=== PATIENT | female | born 2000 | race Caucasian/White ===

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

== ENCOUNTER 2019-08-14 00:57 | Emergency (ER) | payer BC, OTHER ==
[2019-08-14] MEDS ORDERED: HALOPERIDOL LACTATE INJ 5 MG/1 ML VIAL IM ONE (01:04)
[2019-08-14] MEDS ORDERED: LORAZEPAM INJ 2 MG/1 ML VIAL IM ONE (01:05)
[2019-08-14] MEDS ORDERED: NORMAL SALINE 1000 ML 1,000 ML with POTASSIUM CHLORIDE 20 MEQ, MAGNESIUM SULFATE 8 MEQ,... IV PRN ×5 (01:07)
[2019-08-14 03:08] LABS: ABSOLUTE EOSINOPHILS # (AUTO) 0.1 10^3/uL (0.0-0.6); ABSOLUTE MONOCYTES (AUTO) 0.4 10^3/uL (0.1-1.4); ABSOLUTE NEUT (AUTO) 4.2 10^3/uL (1.7-8.2); BASOPHILS % (AUTO) 0.7 % (0-2); EOSINOPHILS % (AUTO) 0.8 % (0-6); HEMATOCRIT 45.2 % (36.0-47.0); HEMOGLOBIN 15.6 g/dL (12.0-15.5); LYMPHOCYTES % (AUTO) 29.6 % (13-45); MEAN CORPUSCULAR HEMOGLOBIN 30.9 pg (27.0-33.4); MEAN CORPUSCULAR HGB CONC 34.6 g/dL (32.0-36.0); MEAN CORPUSCULAR VOLUME 89 fl (80-97); MONOCYTES % (AUTO) 5.9 % (3-13); PLATELET COUNT 259 10^3/uL (150-450); RED BLOOD COUNT 5.06 10^6/uL (3.72-5.28); RED CELL DISTRIBUTION WIDTH 12.8 % (11.5-14.0); TOTAL CELLS COUNTED % (AUTO) 100 %; WHITE BLOOD COUNT 6.7 10^3/uL (4.0-10.5)
[2019-08-14 03:30] LABS: ALBUMIN 4.5 g/dL (3.7-5.6); ALKALINE PHOSPHATASE 65 U/L (50-135); ANION GAP 12 (5-19); ASPARTATE AMINO TRANSFERASE 28 U/L (5-30); BILIRUBIN,DIRECT 0.3 mg/dL (0.0-0.4); BILIRUBIN,TOTAL 0.3 mg/dL (0.2-1.3); BLOOD UREA NITROGEN 10 mg/dL (7-20); CALCIUM 9.3 mg/dL (8.4-10.2); CARBON DIOXIDE 25 mmol/L (22-30); CHLORIDE 111 mmol/L (98-107); GLUCOSE 105 mg/dL (75-110); POTASSIUM 4.1 mmol/L (3.6-5.0); TOTAL PROTEIN 7.6 g/dL (6.3-8.2)
[2019-08-14 03:44] LABS: ACETAMINOPHEN < 10 ug/mL (10-30)
[2019-08-14 03:45] LABS: ALCOHOL 331 mg/dL (NONE DETECTED)
[2019-08-14 04:20] LABS: APPEARANCE,URINE CLEAR; BILIRUBIN,URINE NEGATIVE (NEGATIVE); COLOR,URINE STRAW; GLUCOSE, URINE NEGATIVE (NEGATIVE); KETONES,URINE NEGATIVE (NEGATIVE); PROTEIN,URINE NEGATIVE (NEGATIVE); URINE SPECIFIC GRAVITY 1.004; UROBILINOGEN,URINE NEGATIVE mg/dL (<2.0)
[2019-08-14 04:37] LABS: URINE AMPHETAMINES SCREEN NEGATIVE; URINE BARBITURATES SCREEN NEGATIVE; URINE BENZODIAZEPINES SCREEN NEGATIVE; URINE COCAINE SCREEN NEGATIVE; URINE MARIJUANA (THC) SCREEN NEGATIVE; URINE METHADONE SCREEN NEGATIVE; URINE PHENCYCLIDINE SCREEN NEGATIVE
--- NOTE | 2019-08-14 05:07 | ER Document Report ---
ED General - General Chief Complaint: ETOH Abuse Stated Complaint: ETOH Time Seen by Provider: 08/14/19 01:03 TRAVEL OUTSIDE OF THE [place] IN LAST 30 DAYS: No - HPI Notes: Ms. Sandhu is a 18-year-old female presenting with altered mental status and EtOH intoxication. 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 Mother called home and could not get an answer and EMS was sent for a wellness check. They found patient with severe altered mental status and transported her here. She is incoherent and somewhat combative with strong odor of alcohol present. Not able to obtain any meaningful history from patient at this time due to her state of intoxication. - Related Data Allergies/Adverse Reactions: No Known Allergies Allergy (Unverified 08/26/18 16:50) Past Medical History - General Information source: Emergency Med Personnel Cannot obtain history due to: Intoxicated, Altered mental status - Social History Smoking Status: Unknown if Ever Smoked Family History: Reviewed & Not Pertinent Pulmonary Medical History: Reports: Hx Asthma Neurological Medical History: Reports: Hx Migraine Renal/ Medical History: Denies: Hx Peritoneal Dialysis - Immunizations Immunizations up to date: Yes Review of Systems - Review of Systems -: Yes ROS unobtainable due to patient's medical condition Physical Exam - Vital signs Vitals: Temp Pulse Resp BP Pulse Ox 98.1 F 66 16 108/58 L 100 08/14/19 01:30 08/14/19 01:30 08/14/19 01:30 08/14/19 01:30 08/14/19 01:30 - Notes Notes: GENERAL: Female patient approximately stated age who is swinging at emergency department staff and speaking incoherently with strong odor of alcohol present.. SKIN: Mildly flushed. Good turgor no rashes. HEAD: Normocephalic atraumatic. EYES: PERRLA. EOMI. Conjunctivae and sclerae clear. EARS: CANALS AND TMS CLEAR. NOSE: CLEAR. MOUTH: Moist mucosa. Good dentition. No stridor or edema. No drooling. NECK: Supple. No masses or thyromegaly. No adenopathy. Carotids 2+ without bruits. No JVD. BACK: Symmetrical without tenderness. CHEST: Respirations unlabored. Breath sounds clear and symmetrical. HEART: Regular rhythm. No murmur gallop or rub. ABDOMEN: Soft nontender without masses, organomegaly or rebound. Bowel sounds normally active. No bruits. GENITALIA: Deferred. EXTREMITIES: No edema. No calf tenderness. Cap refill less than 1.5 seconds. Dorsalis pedis and posterior tibial pulses 3+ and symmetrical. NEUROLOGICAL: Slurred speech. Moving all 4 extremities symmetrically and spontaneously. Very ataxic. PSYCHIATRIC: Uncooperative. Course - Re-evaluation Re-evalutation: 08/14/19 05:06 Patient was medicated with Haldol and Ativan for her protection protection of staff. 08/14/19 05:07 Urine drug screen is negative. Alcohol is in excess of 300. Comprehensive metabolic profile is normal. CBC is normal. test is negative. We will administer IV banana bag and keep the patient under observation until she metabolizes off the alcohol and then request psychiatry evaluation. - Vital Signs Vital signs: Temp Pulse Resp BP Pulse Ox 98.1 F 66 16 108/58 L 100 08/14/19 01:30 08/14/19 01:30 08/14/19 01:30 08/14/19 01:30 08/14/19 01:30 - Laboratory Result Diagrams: 08/14/19 02:59 08/14/19 02:59 Laboratory results interpreted by me: 08/14/19 08/14/19 08/14/19 02:59 02:59 03:23 Hgb 15.6 H Sodium 148.1 H Chloride 111 H Urine Blood SMALL H Acetaminophen < 10 L Serum Alcohol 331 H* Discharge - Discharge Clinical Impression: Alcohol intoxication delirium Disposition: PSYCH HOSP/UNIT
--- NOTE | 2019-08-14 16:42 | ER Document Report ---
Doctor's Note Notes: 08/14/19 16:41 Patient's vital signs and previous labs, diagnostic images reviewed. Reviewed mental health notes, nurse's notes and previous providers notes. VSS. Pt is in no distress at this time. Denies any SI or HI. Denies a history of alcohol abuse, states she just drank more than she typically drinks last night. Waiting for mother to come to bedside, mental health feels that she is able to go home. We will recheck centimeters alcohol patient heart rate has been elevated in the last few hours, she is getting K rider which is an 8-hour infusion. Denies fevers, chills, chest pain,palpitations, shortness of breath, dyspnea, nausea, vomiting, diarrhea, abdominal pain, hematuria,blurred vision, double vision, loss of vision, speech changes, LH, dizziness, syncope, headaches, wheezing, ST, URI, neck pain, weakness, bowel or bladder dysfunction, saddle anesthesia, numbness or tingling in bilateral upper or lower extremities equally, muscle paralysis, weakness in bilateral upper or lower extremities equally or rash. General: A&Ox3. Answers questions appropriately. Heart: RRR Lungs: CTAB Psych: Flat affect A/P: Continue monitoring and rec's per MH. Normal diet Consider placement.
[2019-08-14 19:45] VITALS: BP 115/52
--- NOTE | 2019-08-14 21:05 | PSYCHOLOGICAL NOTE ---
Psych Note - Psych Note Date seen by psych provider: 08/14/19 Time seen by psych provider: 16:45 Psych Note: Patient is a 18-year-old female who presents to ED via EMS for EtOH intoxication (LUZ 331). Patient has no prior history with behavioral health team. Patient states she recently returned home from a visit to [place]. Patient reports that 1 drink led to another. Patient describes herself as a "light weight that usually do not drink." Patient denies suicidal and homicidal ideations. Patient denies this event was a suicide attempt. 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 Patient reports no issues adjusting to being alone due to 's deployment. Patient she has social support with several of the wives whose are deployed with patient's . Patient reports no mental health diagnosis. Patient denies prior mental health hospitalizations. Patient denies prior suicide attempts. Clinician asked what patient's future plans were, patient replied to never drink again." Clinician provided patient with information regarding mental health resource [facility] [place]. The following information was obtained by patient's mother who traveled from [place] to be with patient. Mother states she called for a wellness check after she was unable to reach patient via phone. Mother states that she and patient are in frequent contact and it was not typical for her not to be able to reach patient. Mother confirms patient has no prior mental health diagnoses. Mother confirms patient has no prior inpatient mental health hospitalizations. Mother confirms patient has no prior suicide attempts. Mother expressed no concerns for patient's continued safety and wellbeing while patient's is deployed. States she plans to stay with patient for the next couple of days. Patient is alert and oriented to person, place, time and circumstance. Mood is normal with congruent affect. Patient denies suicidal and homicidal ideations. Delusions are absent and behavior is congruent with an intact reality based presentation (i.e., organized and linear through processes). There is no observed behavior that suggests patient is responding to internal stimuli. Patient is able to engage in organized, rational thought processes. Patient is able to express needs and wants in a logical manner. Patient denies current auditory and visual hallucinations. Eye contact is appropriate. Conversational speech is within normal rate, tone, and prosody. Intellectual ability appears to be within average range. Attention and concentration are good. Insight, judgment and impulse control are currently good. Impression/Plan: Patient is cleared from acute psychiatric services. Patient denies suicidal and homicidal ideations. There is no observed behavior that suggests patient is responding to internal stimuli. Patient engaged in organized, rational, linear thought processes and was able to express needs and wants in a logical manner. Patient's EtOH intoxication does not appear to be a suicide attempt. Patient denies event was suicide attempt, and mother supports patient's narrative of event and lack of mental health history. Patient has strong support system with her mother. Patient identifies support system fri ends. Patient's mother will remain with patient for the next few days. Plan is for patient to follow-up with outpatient mental health provider, if needed. Dr. Duval was consulted on the care and management of this patient; attending physician is in agreement with recommendations and disposition.
== END 2019-08-14 20:17 | disposition home or self-care (01) ==
LOC: ER 00:57
DX: F10.121 Alcohol abuse with intoxication delirium (principal); Y90.8 Blood alcohol level of 240 mg/100 ml or more; J45.909 Unspecified asthma, uncomplicated
CPT/HCPCS: 99285; 96372; 96375; 96365; 96366; 36415; 82962; 80307 ×3; 84703; 85025; 80053; 81001; J1630; J3475; J2060; J3480; J3411; J7030; J3490